=== PATIENT | male | born 1990 | race Caucasian/White ===

== ENCOUNTER → 2021-03-23 11:33 | Outpatient (CLI) | payer OTHER, SELFPAY ==
--- NOTE | 2021-03-23 | DI.RAD.S_ITS ---
PROCEDURE: XR TIBIA FUBULA RT 2V INDICATIONS: Pain in right leg TECHNIQUE: 2 views of the tibia and fibula were acquired. COMPARISON: None. FINDINGS: Bones: There is significant cortical thickening involving the anterior tibial cortex. No radiolucent nidus is appreciated radiographically however. No evidence of fracture or soft tissue swelling. Soft tissues: No suspicious soft tissue calcifications or masses. IMPRESSION: Anterior tibial cortical thickening. Differential possibilities include reactive thickening from stress fracture or prior injury, and possibly osteoid osteoma. Consider follow-up CT to evaluate for radiolucent nidus Approved by: Chilo Reeves M.D. on 03/23/2021 at 13:33
== END ==
PROVIDERS: PCP Family Medicine; Referring Provider Family Medicine; Visit Provider Family Medicine
DX: M79.604 Pain in right leg (principal)
CPT/HCPCS: 73590

== ENCOUNTER → 2021-04-22 10:33 | Outpatient (CLI) | payer OTHER, SELFPAY ==
--- NOTE | 2021-04-22 | DI.CT.S_ITS ---
PROCEDURE: CT LE RT WO CON INDICATIONS: Other specified disorders of bone, lower leg TECHNIQUE: Noncontrast 1-1.5 mm axial sections acquired from the mid-patella to the proximal tibia, with coronal and sagittal reformats. COMPARISON: [facility], CR, XR TIBIA FIBULA RT 2V, 03/23/2021, 11:46. FINDINGS: Image quality: Excellent. Bones: No acute fracture. There is anatomic alignment. Prominent cortical thickness involving the mid tibial diastasis circumferentially is again noted as radiographically characterized on the prior study however the exact etiology is unclear. This may be bilaterally symmetric based on the welt stitcher image. Soft tissues: Subcutaneous soft tissues and muscles appear grossly unremarkable. IMPRESSION: Diffuse smooth cortical thickening involving the mid tibial diaphysis although unclear clinical significance or etiology. If there is pain or referable symptoms to this area, MRI evaluation could be considered as clinically necessary. Dictated by: Hola Li M.D. on 04/22/2021 at 13:10 Approved by: Hola Li M.D. on 04/22/2021 at 13:15
== END ==
PROVIDERS: PCP Family Medicine; Referring Provider Family Medicine; Visit Provider Family Medicine
DX: M89.8X6 Other specified disorders of bone, lower leg (principal)
CPT/HCPCS: 73700

== ENCOUNTER → 2022-12-16 11:44 | Outpatient (CLI) | payer OTHER, SELFPAY ==
--- NOTE | 2022-12-16 | DI.RAD.S_ITS ---
PROCEDURE: XR TIBIA FUBULA RT 2V INDICATIONS: RIGHT LEG PAIN TECHNIQUE: 2 views of the tibia and fibula were acquired. COMPARISON: [facility], CR, XR TIBIA FIBULA RT 2V, 03/23/2021, 11:46. FINDINGS: Bones: No fractures or dislocations. Anterior tibial cortical thickening redemonstrated, similar in appearance to before, nonspecific. Prominent bony excrescence at the talar neck redemonstrated. Soft tissues: No suspicious soft tissue calcifications. IMPRESSION: No acute osseous abnormality. If symptoms persist, follow-up radiographs and/or CT or MRI may be helpful for further evaluation. Prominent bony excrescence at the talar neck redemonstrated, nonspecific, can be seen in the setting of tarsal coalition. Dictated by: Kaleb Meraz M.D. on 12/16/2022 at 14:29 Approved by: Kaleb Meraz M.D. on 12/16/2022 at 14:34
== END ==
PROVIDERS: PCP Family Medicine; Referring Provider Family Medicine; Visit Provider Family Medicine
DX: M79.604 Pain in right leg (principal); M89.8X6 Other specified disorders of bone, lower leg
CPT/HCPCS: 73590

== ENCOUNTER 2023-07-05 13:29 | Outpatient (RCR) | payer OTHER, SELFPAY ==
--- NOTE | 2023-07-05 16:42 | PT.OIE ---
Current Diagnoses Pain in left shoulder (07/05/23) Visit Care Team Role Provider Type Laurence Carrasco MD Attending Provider Physician Family Provider Primary Care Provider Referring Provider Specialty: Family Practice Address: [address] [place] [address], [facility] [place], [facility] Email: [email or web address] Physical Therapy Initial Evaluation PT-OP-A Visit Information Start: 07/05/23 14:14 Freq: Status: Active Protocol: Document 07/05/23 13:45 DCW (Rec: 07/05/23 14:26 DCW [id number]) Out-Patient Physical Therapy Visit Information Visit Information Visit Type Initial Evaluation Visit Start Time 13:45 Visit Stop Time 14:10 Total Visit Minutes 25 Visit Number 1 Number of [employer] Visits 0 Evaluation Information Evaluation Date 07/05/23 PT-OP-B Current Condition Start: 07/05/23 14:14 Freq: Status: Active Protocol: Document 07/05/23 13:45 DCW (Rec: 07/05/23 14:26 DCW [id number]) Current Condition History of Current Condition Onset Date s/p three months Current Complaints Left shoulder pain History of Current Condition Pt is a 33 year old presenting three months s/p left shoulder injury. Pt reports it began to bother him over time as he increased resistance after starting weight lifting last year. Started with a dull ache in his shoulder, progressed as he continued to lift, finally took a break from lifting and saw his PCP in April. At that time, couldn't find any structural damage or injury, recommended PT and rest from lifting. In the time it has taken for the pt to get on the PT schedule, he has been feeling much better, has tried to gently get back into lifting, starting with some push-ups, which seem to be going well so far. No real pain to speak of any more, feels like he was able to heal while resting, other than some occasional tightness. Does not feel he needs many appointments, is more looking for possible information and instructions on progressing lifting. PT-OP-C Subjective Start: 07/05/23 14:14 Freq: Status: Active Protocol: Document 07/05/23 13:45 DCW (Rec: 07/05/23 14:26 DCW [id number]) OP-PT Subjective Patient Comments Patient Comments I have full ROM, it's not really bothering me any more. I'd like to get back to lifting, I'm actually excited about going down in weight after the break and getting more into focusing on my form. Patient Reported Progress Improving Patient Questionnaires Quick Dash- Upper Extremity Quick Dash UE Score 2.27% Quick Dash UE Impairment 1 to 19% Impaired (Score 1-19) OP-PT Pain Assessment Location Left Shoulder Intensity 1 Scale Used Numeric (0 - 10) PT-OP-E Functional Tests Start: 07/05/23 14:14 Freq: Status: Active Protocol: Document 07/05/23 13:45 DCW (Rec: 07/05/23 14:26 DCW [id number]) Functional Tests Apley's Scratch Test Action 2- Left T4 Action 2- Right T4 Action 3- Left T7 Action 3- Right T7 PT-OP-F Manual Assessment Start: 07/05/23 14:14 Freq: Status: Active Protocol: Document 07/05/23 13:45 DCW (Rec: 07/05/23 14:26 DCW [id number]) Manual Assessments Soft Tissue Assessment Soft Tissue Mobility Assessment Mild left pec tone tenderness to palpation 0.5/4 - complaint of very mild discomfort PT-OP-K Range of Motion Start: 07/05/23 14:14 Freq: Status: Active Protocol: Document 07/05/23 13:45 DCW (Rec: 07/05/23 14:26 DCW [id number]) Shoulder Goniometric Range of Motion Shoulder Bilateral Active Shoulder ROM WFL Yes Testing Position Sitting Flexion 180 Abduction 180 External Rotation at 0 degrees Abduction 70 Internal Rotation Behind Back (text) T7 PT-OP-L Special Tests Start: 07/05/23 14:14 Freq: Status: Active Protocol: Document 07/05/23 13:45 DCW (Rec: 07/05/23 14:26 DCW [id number]) Special Tests Shoulder Special Tests Yergason's Biceps Test Results Negative Speed's Biceps Test Results Negative Passive ER Rotator Cuff Test Results Negative Lift-Off Rotator Cuff Test Results Negative Donahue Bo Impingement Test Results Negative Empty Can Test Results Negative Drop Arm Rotator Cuff Test Results Negative Biceps Load II Test Test Results Negative Belly Press Test Results Negative PT-OP-M Strength Start: 07/05/23 14:14 Freq: Status: Active Protocol: Document 07/05/23 13:45 DCW (Rec: 07/05/23 14:26 DCW [id number]) Shoulder Strength Shoulder Manual Muscle Testing Right Flexion 5 Normal Abduction (C5) 5 Normal External Rotation 4+ Good+ Internal Rotation 4+ Good+ Horizontal Adduction 4+ Good+ Left Flexion 5 Normal Abduction (C5) 5 Normal External Rotation 4+ Good+ Internal Rotation 4+ Good+ Horizontal Adduction 4+ Good+ PT-OP-Q Treatments Start: 07/05/23 14:14 Freq: Status: Active Protocol: Document 07/05/23 13:45 DCW (Rec: 07/05/23 16:41 DCW [id number]) Therapeutic Exercises Supine Exercises Serratus punch Supine Exercise Name Serratus Punch Side bilateral Resistance 4# Comments clear L instability Horizontal Adduction Supine Exercise Name Horizontal Adduction Side bilateral Resistance 4# Comments clear L instability Standing Exercises Pec Stretch Standing Exercise Name Pec Stretch Side bilateral Comments Corner stretch PT-OP-T Assessment and Plan Start: 07/05/23 14:14 Freq: Status: Active Protocol: Document 07/05/23 13:45 DCW (Rec: 07/05/23 16:41 DCW [id number]) Physical Therapy Assessment Assessment Summary Assessment Pt already doing very well with injury recovery, largely asymptomatic at this time. Only noticeable issues during evaluation today was some slight tone with very mild tenderness along left pec, potentially result of compensatory motions following initial injury. Reviewed pec stretch to assist loosening up . Did spend some time discussing importance of form/ technique over just constantly increasing resistance when lifting. Pt excited to return to lifting using lower weight to focus more on form and mechanics. At this time, pt does not appear to require any further out-patient therapeutic intervention. Pt will be discharged from PT at this time following eval. Physical Therapy Plan Frequency and Duration Frequency of Treatment 1x/Week Plan of Care Start Date 07/05/23 Plan of Care End Date 07/06/23 Discharge Physical Therapy Discharge Comments No further skilled intervention necessary at this time
--- NOTE | 2023-07-05 16:42 | PT.OPPOC ---
Physical, Occupational & Speech Therapy At [facility] Current Diagnoses Pain in left shoulder (07/05/23) Visit Care Team Role Provider Type Laurence Carrasco MD Attending Provider Physician Family Provider Primary Care Provider Referring Provider Specialty: Family Practice Address: [address] [place] [address], [id number] Email: [email or web address] Plan Of Care PT-OP-T Assessment and Plan Start: 07/05/23 14:14 Freq: Status: Active Protocol: Document 07/05/23 13:45 DCW (Rec: 07/05/23 16:41 DCW [id number]) Physical Therapy Assessment Assessment Summary Assessment Pt already doing very well with injury recovery, largely asymptomatic at this time. Only noticeable issues during evaluation today was some slight tone with very mild tenderness along left pec, potentially result of compensatory motions following initial injury. Reviewed pec stretch to assist loosening up . Did spend some time discussing importance of form/ technique over just constantly increasing resistance when lifting. Pt excited to return to lifting using lower weight to focus more on form and mechanics. At this time, pt does not appear to require any further out-patient therapeutic intervention. Pt will be discharged from PT at this time following eval. Physical Therapy Plan Frequency and Duration Frequency of Treatment 1x/Week Plan of Care Start Date 07/05/23 Plan of Care End Date 07/06/23 Discharge Physical Therapy Discharge Comments No further skilled intervention necessary at this time Plan of Care Dates Plan of Care Start Date 07/05/23 Plan of Care End Date 07/06/23 Electronically Signed by: Tristen Calderon, PT 07/05/23 4114 If you are in agreement with this Plan of Care, please return a signed and dated copy. I have reviewed this Plan of Care and certify that the skilled therapy services above are required to meet the patient?s needs. Physician Signature Date Printed Name and Credentials Clinical Instructor Signature Printed Name and Credentials
--- NOTE | 2023-07-05 16:42 | PT.OPPOC ---
Physical, Occupational & Speech Therapy At [facility] Current Diagnoses Pain in left shoulder (07/05/23) Visit Care Team Role Provider Type Laurence Carrasco MD Attending Provider Physician Family Provider Primary Care Provider Referring Provider Specialty: Family Practice Address: [address] [place] [address], [id number] Email: [email or web address] Plan Of Care PT-OP-T Assessment and Plan Start: 07/05/23 14:14 Freq: Status: Active Protocol: Document 07/05/23 13:45 DCW (Rec: 07/05/23 16:41 DCW [id number]) Physical Therapy Assessment Assessment Summary Assessment Pt already doing very well with injury recovery, largely asymptomatic at this time. Only noticeable issues during evaluation today was some slight tone with very mild tenderness along left pec, potentially result of compensatory motions following initial injury. Reviewed pec stretch to assist loosening up . Did spend some time discussing importance of form/ technique over just constantly increasing resistance when lifting. Pt excited to return to lifting using lower weight to focus more on form and mechanics. At this time, pt does not appear to require any further out-patient therapeutic intervention. Pt will be discharged from PT at this time following eval. Physical Therapy Plan Frequency and Duration Frequency of Treatment 1x/Week Plan of Care Start Date 07/05/23 Plan of Care End Date 07/06/23 Discharge Physical Therapy Discharge Comments No further skilled intervention necessary at this time Plan of Care Dates Plan of Care Start Date 07/05/23 Plan of Care End Date 07/06/23 Electronically Signed by: Tristen Calderon, PT 07/05/23 [id number] If you are in agreement with this Plan of Care, please return a signed and dated copy. I have reviewed this Plan of Care and certify that the skilled therapy services above are required to meet the patient?s needs. Physician Signature Date Printed Name and Credentials Clinical Instructor Signature Printed Name and Credentials
== END 2023-07-10 14:45 | disposition home or self-care (01) ==
LOC: PHYS 13:29
PROVIDERS: Family Provider Family Medicine; PCP Family Medicine; Referring Provider Family Medicine; Visit Provider Family Medicine
DX: M25.512 Pain in left shoulder (principal)
CPT/HCPCS: 97110; 97161

== ENCOUNTER → 2025-01-27 11:19 | Outpatient (CLI) | payer OTHER, SELFPAY ==
--- NOTE | 2025-01-27 11:22 | DI.RAD.S_ITS ---
PROCEDURE: ORTHO-XR FOOT 2V WB LEFT INDICATIONS: LT FOOT PAIN TECHNIQUE: 2 weight-bearing views acquired of the foot. COMPARISON: None. FINDINGS: Bones: There is normal bony alignment with weight bearing. Posterior talocalcaneal osteophytosis. No fractures or dislocations. No suspicious bony lesions. Minimal retrocalcaneal enthesopathy. Soft tissues: No tibiotalar joint effusion. No suspicious soft tissue calcifications. IMPRESSION: No acute bony abnormality. Dictated by: Avila Centeno M.D. on 01/28/2025 at 17:57 Approved by: Avila Centeno M.D. on 01/28/2025 at 17:58
== END ==
PROVIDERS: Family Provider Family Medicine; PCP Family Medicine; Referring Provider Family Medicine; Visit Provider Family Medicine
DX: M79.672 Pain in left foot (principal)
CPT/HCPCS: 73620